=== PATIENT | male | born 1955 | race Caucasian/White ===

== ENCOUNTER 2018-10-07 02:33 | Emergency (ER) | payer OTHER ==
[~2018-10-07] VITALS: Ht 182.9 cm; Wt 99.8 kg
[2018-10-07 02:39] VITALS: BP_SYST 160
[2018-10-07] MEDS ORDERED: HYDROcodone/ACETAMIN 5-325 MG TAB (NORCO/ VICODIN) PO ONE (03:45)
[2018-10-07 03:50] VITALS: BP_SYST 136
== END 2018-10-07 03:50 | disposition home or self-care (01) ==
LOC: SED 02:33
DX: G56.03 Carpal tunnel syndrome, bilateral upper limbs (principal); R94.31 Abnormal electrocardiogram [ECG] [EKG]
CPT/HCPCS: 93005; 99283

== ENCOUNTER 2020-06-26 12:48 | Emergency (ER) | payer OTHER, SELFPAY ==
[~2020-06-26] VITALS: Ht 182.9 cm; Wt 99.8 kg
[2020-06-26 12:52] VITALS: BP_SYST 142
--- NOTE | 2020-06-26 13:15 | NUR ---
RECEIVED AND IN ROOM, STEADY GUARDED GAIT. RESP UNLABORED, SKIN WARM AND DRY. NO DISTRESS
--- NOTE | 2020-06-26 13:23 | NUR ---
DR GARIBAY IN TO ASSESS
[2020-06-26 13:49] LABS: BASOPHILS % (AUTO) 0.9 % (0.0-2.0); EOSINOPHILS # (AUTO) 0.1 K/uL (0.0-0.4); EOSINOPHILS % (AUTO) 1.5 % (0.0-4.0); HEMATOCRIT 41.5 % (36-54); HEMOGLOBIN 14.3 g/dL (14.0-18.0); LYMPHOCYTES # (AUTO) 1.9 K/uL (1.0-5.5); LYMPHOCYTES % (AUTO) 34.7 % (20.5-51.5); MEAN CORPUSCULAR HEMOGLOBIN 33 pg (27-31); MEAN CORPUSCULAR HGB CONC 35 % (32-36); MEAN CORPUSCULAR VOLUME 94 fL (79.0-98.0); MONOCYTES # (AUTO) 0.3 K/uL (0.0-1.0); MONOCYTES % (AUTO) 6.4 % (1.7-9.3); NEUTROPHILS % (AUTO) 56.5 % (40.0-70.0); PLATELET COUNT (AUTO) 229 K/uL (130-430); RED CELL DISTRIBUTION WIDTH 13.3 % (9.0-15.0); WHITE BLOOD COUNT (AUTO) 5.3 K/uL (4.8-10.8)
[2020-06-26 13:55] LABS: CALCIUM 9.2 mg/dL (8.4-11.0); CREATININE 1.03 mg/dL (0.55-1.30); POTASSIUM 3.9 mmol/L (3.5-5.1)
[2020-06-26] MEDS ORDERED: DEXAMETHASONE SOD PHOSPHATE 10 MG/ML VIAL IM ONE (14:00)
--- NOTE | 2020-06-26 14:00 | NUR ---
SEVERVAL MONTHS OF SCIATIC PAIN WITH RECENT 3 DAY NUMBNESS AND FOOT DROP. PT DRAGGING HIS FOT AND UNABLE TO LIFT HIS TOES. CALM, ALERT, RESP UNLABORED, DENIES BOWEL OR BLADDER INCONTIENENCE. SKIN WARM AND DRY. CIRCULATION AND SENSATION INTACT
[2020-06-26 14:01] LABS: ALBUMIN 3.7 g/dL (3.4-4.8); TOTAL BILIRUBIN 0.4 mg/dL (0.0-1.0)
--- NOTE | 2020-06-26 15:05 | NUR ---
CALM, ALERT, NO CHANGE IN MENTATION, DENIES CP/SOB
--- NOTE | 2020-06-26 15:48 | NUR ---
DR MCKEE IN TO ASSESS
--- NOTE | 2020-06-26 17:55 | NUR ---
UP AMBULATING TO BATHROOM, NO DISTRESS. STEADY GAIT
--- NOTE | 2020-06-26 20:30 | NUR ---
CALL TO [facility]. UNABLE TO CONTACT RN. TOLD TO CALL BACK
--- NOTE | 2020-06-26 20:39 | NUR ---
CALM, ALERT, RESP UNLABORED, NO DISTRESS
--- NOTE | 2020-06-26 21:01 | NUR ---
REPORT TO ROMULO SNYDER [facility]. [phone]
[2020-06-26 23:59] VITALS: BP_SYST 140
--- NOTE | 2020-06-26 23:59 | NUR ---
Patient to be transferred to [facility]. Is being transferred due to higher level of care. Receiving facility has accepting physician and available space. ER physician has signed transfer form. Patient or responsible libertarian has agreed to transfer and signed form. Patient belongings inventoried and will be sent with patient. Copy of nursing notes, lab reports, EKG, Physicians Orders and X-rays to be sent with patient. Report called to andrew at receiving facility. Receiving physician is Eleazar. [facility] onscene for transfer
== END 2020-06-26 23:59 | disposition short-term general hospital (02) ==
LOC: SED 12:48
DX: G95.29 Other cord compression (principal); R53.1 Weakness; Z20.828 Contact with and (suspected) exposure to other viral communicable diseases
CPT/HCPCS: 36415; 72100; 80053; 85025; 87426; 96372; 99285; J1100